=== PATIENT | male | born 1980 | race Caucasian/White ===

== ENCOUNTER → 2019-03-18 | Outpatient (CLI) | payer MEDICARE, MEDICAID ==
--- NOTE | 2019-03-24 13:47 | PATH ---
[facility] [address] [place] [address] PATHOLOGY RPT PROCEDURE Name: ADAMARISABDIRASHID Room: [facility] Alyssa.#: [id number] Admission: 03/18/19 Date of : 80 Discharge: Report #: [id number] Path Case #: [id number] [facility] Accession Number: [id number] . 01 Material submitted: . foot - RIGHT FOOT WOUND TISSUE. Modifiers: right . 01 Clinical history: . None provided . 02 Diagnosis: Right foot wound, biopsy: - Benign skin with ulceration, scattered fungal elements within epithelium and features typical of stasis dermatitis. (See comment) . (JORI:mml; 03/20/2019) QLM 03/21/2019 1008 Local . 02 Comment: Properly-controlled PAS-fungus stain demonstrates scattered fungal organisms within the squamous epithelium. Speciation is best determined with cultures. (JORI:mml; 03/20/2019) . 02 Electronically signed: . Jean Ding MD, Pathologist NPI- [id number] . 01 Gross description: . The specimen is received in formalin, labeled "Abdirashid Bailon, right foot biopsy". Received are three segments of pale golden, grossly unremarkable to slight granular skin ranging in size from 1.3 x 0.4 x 0.2 to 1.5 x 0.4 x 0.2 cm in greatest dimensions. The surgical margins are inked. The specimen is submitted entirely in cassette A1. (CAA; 03/19/2019) QAC/QAC 03/19/2019 1159 Local . 02 Pathologist provided ICD-10: I87.2, L98.499 . 02 CPT . 573772, 407555 Specimen Comment: Report sent to / DR ATWOOD Performed at: [address] [id number] MD Kenny Aguayo MD Phone: [phone] [address] [address] PATHOLOGY RPT PROCEDURE Name: ABDIRASHID BAILON Room: [facility]#: [id number] Admission: 03/18/19 Date of : 80 Discharge: Report #: [id number] Path Case #: [id number] Performed at: [address] [id number] MD Jean Ding MD Phone: [phone]
== END ==
LOC: M.WC 13:00
DX: L89.613 Pressure ulcer of right heel, stage 3 (principal); Q05.7 Lumbar spina bifida without hydrocephalus; G82.21 Paraplegia, complete; I10 Essential (primary) hypertension; F32.9 Major depressive disorder, single episode, unspecified

== ENCOUNTER → 2019-03-25 | Outpatient (CLI) | payer MEDICARE, MEDICAID | LOC: M.WC 05:09 | DX: L89.613 Pressure ulcer of right heel, stage 3 (principal); Q05.7 Lumbar spina bifida without hydrocephalus; G82.20 Paraplegia, unspecified; I10 Essential (primary) hypertension; F32.9 Major depressive disorder, single episode, unspecified ==

== ENCOUNTER → 2019-04-01 | Outpatient (CLI) | payer MEDICARE, MEDICAID ==
--- NOTE | 2019-04-04 14:06 | PATH ---
[facility] [address] [place] [address] PATHOLOGY RPT PROCEDURE Name: ABDIRASHID BAILON [facility] [id number] Admission: 04/01/19 Date of : 80 Discharge: Report #: [id number] Path Case #: [id number] [facility] Accession Number: [id number] . 01 Material submitted: . heel - BONE TISSUE FROM RIGHT HEEL WOUND. Modifiers: right . 01 Clinical history: . Right heel nonhealing wound . 02 Diagnosis: Right heel wound (bone): - Benign and viable cancellous bone without osteomyelitis identified. (JORI:erica; 04/04/2019) MBR 04/04/2019 1211 Local . 02 Electronically signed: . Jean Ding MD, Pathologist NPI- [id number] . 01 Gross description: . The specimen is received in formalin, labeled "Abdirashid Bailon, right heel wound (bone)" and consists of a fragment of golden bone measuring 0.3 x 0.3 x 0.3 cm which is entirely submitted in A1 following decalcification. (SDY; 04/02/2019) SYU/SYU 04/02/2019 1033 Local . 02 Pathologist provided ICD-10: S91.301A . 02 CPT . 341959, 966465 Specimen Comment: A courtesy copy of this report has been sent to Specimen Comment: [phone], . Specimen Comment: Report sent to / DR ATWOOD Performed at: [address], [place], [place] [id number] MD Kenny Aguayo MD Phone: [phone] Performed at: 02 [facility] [address], [place], [place] [id number] MD Jean iDng MD Phone: [phone]
== END ==
LOC: M.WC 05:39
DX: L89.613 Pressure ulcer of right heel, stage 3 (principal); Q05.7 Lumbar spina bifida without hydrocephalus; G82.20 Paraplegia, unspecified; I10 Essential (primary) hypertension; F32.9 Major depressive disorder, single episode, unspecified

== ENCOUNTER → 2019-04-04 | Outpatient (CLI) | payer MEDICARE, MEDICAID | LOC: M.MRI 17:01 | DX: L89.619 Pressure ulcer of right heel, unspecified stage (principal); S82.391D Other fracture of lower end of right tibia, subsequent encounter for closed fracture with routine healing; X58.XXXD Exposure to other specified factors, subsequent encounter ==

== ENCOUNTER → 2019-04-08 | Outpatient (CLI) | payer MEDICARE, MEDICAID | LOC: M.WC 05:20 | DX: L89.613 Pressure ulcer of right heel, stage 3 (principal); I87.2 Venous insufficiency (chronic) (peripheral); G82.20 Paraplegia, unspecified; I10 Essential (primary) hypertension; Q05.7 Lumbar spina bifida without hydrocephalus; F32.9 Major depressive disorder, single episode, unspecified ==

== ENCOUNTER → 2019-04-15 | Outpatient (CLI) | payer MEDICARE, MEDICAID | LOC: M.WC 05:14 | DX: L89.613 Pressure ulcer of right heel, stage 3 (principal); Q05.7 Lumbar spina bifida without hydrocephalus; G82.20 Paraplegia, unspecified; I87.2 Venous insufficiency (chronic) (peripheral); I10 Essential (primary) hypertension; F32.9 Major depressive disorder, single episode, unspecified ==

== ENCOUNTER → 2019-04-18 | Outpatient (CLI) | payer MEDICARE, MEDICAID | LOC: M.WC 01:47 | DX: L89.613 Pressure ulcer of right heel, stage 3 (principal); Q05.7 Lumbar spina bifida without hydrocephalus; G82.20 Paraplegia, unspecified; I87.2 Venous insufficiency (chronic) (peripheral); I10 Essential (primary) hypertension; F32.9 Major depressive disorder, single episode, unspecified ==

== ENCOUNTER → 2019-04-22 | Outpatient (CLI) | payer MEDICARE, MEDICAID | LOC: M.WC 05:02 | DX: L89.613 Pressure ulcer of right heel, stage 3 (principal); Q05.7 Lumbar spina bifida without hydrocephalus; I10 Essential (primary) hypertension; I87.2 Venous insufficiency (chronic) (peripheral); G82.20 Paraplegia, unspecified; F32.9 Major depressive disorder, single episode, unspecified ==

== ENCOUNTER → 2019-05-13 | Outpatient (CLI) | payer MEDICARE, MEDICAID | LOC: M.WC 05:13 | DX: L89.613 Pressure ulcer of right heel, stage 3 (principal); Q05.7 Lumbar spina bifida without hydrocephalus; G82.20 Paraplegia, unspecified; I87.2 Venous insufficiency (chronic) (peripheral); I10 Essential (primary) hypertension; F32.9 Major depressive disorder, single episode, unspecified ==

== ENCOUNTER → 2019-05-20 | Outpatient (CLI) | payer MEDICARE, MEDICAID | LOC: M.WC 04:43 | DX: L89.613 Pressure ulcer of right heel, stage 3 (principal); Q05.7 Lumbar spina bifida without hydrocephalus; I87.2 Venous insufficiency (chronic) (peripheral); I10 Essential (primary) hypertension; G82.20 Paraplegia, unspecified; F32.9 Major depressive disorder, single episode, unspecified ==

== ENCOUNTER → 2019-05-27 | Outpatient (CLI) | payer MEDICARE, MEDICAID | LOC: M.WC 04:59 | DX: L89.613 Pressure ulcer of right heel, stage 3 (principal); Q05.7 Lumbar spina bifida without hydrocephalus; G82.20 Paraplegia, unspecified; I87.2 Venous insufficiency (chronic) (peripheral); I10 Essential (primary) hypertension; F32.9 Major depressive disorder, single episode, unspecified ==

== ENCOUNTER → 2019-06-03 | Outpatient (CLI) | payer MEDICARE, MEDICAID | LOC: M.WC 04:53 | DX: L89.613 Pressure ulcer of right heel, stage 3 (principal); Q05.7 Lumbar spina bifida without hydrocephalus; G82.20 Paraplegia, unspecified; I87.2 Venous insufficiency (chronic) (peripheral); I10 Essential (primary) hypertension; F32.9 Major depressive disorder, single episode, unspecified ==

== ENCOUNTER → 2019-06-25 | Outpatient (CLI) | payer MEDICARE, MEDICAID | LOC: M.WC 06-24 13:00 | DX: L89.613 Pressure ulcer of right heel, stage 3 (principal); G82.20 Paraplegia, unspecified; L84 Corns and callosities; Q05.7 Lumbar spina bifida without hydrocephalus; I87.2 Venous insufficiency (chronic) (peripheral); I10 Essential (primary) hypertension; F32.9 Major depressive disorder, single episode, unspecified ==

== ENCOUNTER → 2019-07-01 | Outpatient (CLI) | payer MEDICARE, MEDICAID | LOC: M.WC 02:24 | DX: L89.613 Pressure ulcer of right heel, stage 3 (principal); G82.20 Paraplegia, unspecified; I87.2 Venous insufficiency (chronic) (peripheral); I10 Essential (primary) hypertension; Q05.7 Lumbar spina bifida without hydrocephalus ==

== ENCOUNTER → 2019-07-07 | Outpatient (CLI) | payer MEDICARE, MEDICAID ==
[~2019-07-07] MED LIST: LISINOPRIL-HCT1 EACH PO
== END ==
LOC: M.WC 05:49
DX: L89.613 Pressure ulcer of right heel, stage 3 (principal); Q05.7 Lumbar spina bifida without hydrocephalus; I87.2 Venous insufficiency (chronic) (peripheral); G82.20 Paraplegia, unspecified; I10 Essential (primary) hypertension

== ENCOUNTER → 2019-07-14 | Day surgery (SDC) | payer MEDICARE, MEDICAID ==
[2019-07-14 11:56] LABS: HEMATOCRIT 41.9 % (42.0-52.0); HEMOGLOBIN 14.8 gm/dL (14.0-18.0); MCH 29.5 pg (26.0-34.0); MCHC 35.3 g/dL (28.0-37.0); MCV 83.5 fL (80.0-100.0); MPV 9.2 fl. (7.2-11.1); RBC 5.02 mil/uL (4.50-6.00); WBC 10.2 thou/uL (4.0-11.0)
[2019-07-14 12:06] LABS: CALCIUM 10.1 mg/dL (8.5-10.1); CREATININE 1.6 mg/dL (0.6-1.3); POTASSIUM 3.9 mmol/L (3.5-5.1)
[2019-07-14 12:18] LABS: ALBUMIN 3.6 g/dL (3.4-5.0); TOTAL BILIRUBIN 0.3 mg/dL (<0.1-1.0); TOTAL PROTEIN 7.6 g/dL (6.4-8.2)
--- NOTE | 2019-07-21 08:10 | H ---
[place] [address] HISTORY AND PHYSICAL Name: WENDIE BAILON Room: [facility].#: [id number] Admission: 07/14/19 Attend Phys: Wendy Ferrer MD Discharge: Date of : 80 Report #: [id number] THIS REPORT FOR: //name// CC: Wendy Hatch Plan of treatment on 07/14/2019. DIAGNOSIS: Pressure ulcer of the right heel, stage 3. HISTORY OF PRESENT ILLNESS: The patient is a 38-year-old male with chronic deformity of the right lower extremity and has a development of a pressure ulcer on his right heel, which is a stage 3. He was being seen at the [facility] and after different trials of debridements and conservative therapy, it has been recommended that he proceed on to a more advanced skin tissue substitute, so he is being prepared for debridement and placement of an advanced skin tissue substitute. PAST MEDICAL HISTORY: His other significant history, spina bifida, hypertension and chronic venous insufficiency. PAST SURGICAL HISTORY: He has had some surgical operations for spina bifida. The details are not available. CURRENT MEDICATIONS: Include lisinopril/hydrochlorothiazide 03/29.. ALLERGIES: HE REPORTS ALLERGIES TO LATEX AND SULFA. SOCIAL HISTORY: He does not smoke or drink. He is wheelchair bound. PHYSICAL EXAMINATION: GENERAL: Well-developed, well-nourished male. HEAD, EARS, EYES, NOSE AND THROAT: Unremarkable. NECK: Supple. LUNGS: Clear. CARDIAC: Regular rate and rhythm. ABDOMEN: Benign. EXTREMITIES: On his lower extremity, which are atrophic, of note he has got some scarring on the medial aspect of his right heel from a foot operation that he has had many different clubfoot and it was noticed there is a healed wound on the right, which is pressure related. It measures 2.4 cm x 1.3 x 1.9 cm in depth. There is no significant surrounding erythema. There is some small pitting edema from his chronic venous insufficiency. IMPRESSION: Pressure ulcer of the right heel, stage 3; venous insufficiency. PLAN: The plan is for surgical debridement and placement of Stravix, [place] [address] HISTORY AND PHYSICAL Name: WENDIE BAILON Room: [facility]#: [id number] Admission: 07/14/19 Attend Phys: Wendy Ferrer MD Discharge: Date of : 80 Report #: [id number] advanced tissue substitute and CECILY bandaging. I have outlined the risks and benefits of the surgery and placement of the CECILY bandage. I answered his questions. He understands and wishes to proceed. <ELECTRONICALLY SIGNED> By: Wendy Ferrer MD 07/21/19 0810 1103 [id number] Ferrer MD /nt
--- NOTE | 2019-07-21 08:10 | OP ---
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 OPERATIVE PROCEDURE: Excisional debridement down to muscle followed by placement of 3 x 6 Stravix and a 5.9 x 5.9 CECILY bandage. ANESTHESIA: None. OPERATIVE FINDINGS: A deep seated chronic diabetic foot ulcer was in need of advanced tissue substitute to aid in healing. DESCRIPTION OF PROCEDURE: The patient was placed on the operating table and the right lower extremity was prepped and draped in a sterile fashion. A timeout was taken. IV Ancef was administered. I began by using pickups and a #15 scalpel blade and sharply excising the surrounding callus at the outer edge of the wound and some slough and devitalized tissues in the deep wound until healthy bleeding was accomplished. Bleeding was controlled with cautery. Then, a taut out 3 x 6 Stravix was cut in piece, had fenestration hole was placed into it and fed into this cavity and it filled the cavity completely. I then took an Adaptic and cut 2 pieces and laid it over the outside of the wound and Steri-Stripped it with Steri-Strips and Mastisol and then a 5.9 x 5.9 square CECILY was placed over the wound and placed under negative pressure with good seal ending the operative procedure. Estimated blood loss was 1 mL. Sponge and instrument counts correct. The patient was sent to recovery in stable condition. <ELECTRONICALLY SIGNED> By: Wendy Ferrer MD 07/21/19 0810 1337 [id number] Ferrer MD /nt
== END | disposition home or self-care (01) ==
LOC: M.SUR 06:53
PROVIDERS: Anesthesiology
DX: E11.621 Type 2 diabetes mellitus with foot ulcer (principal); L89.613 Pressure ulcer of right heel, stage 3; I10 Essential (primary) hypertension; I87.2 Venous insufficiency (chronic) (peripheral); Z79.899 Other long term (current) drug therapy; Z91.040 Latex allergy status; Z88.2 Allergy status to sulfonamides

== ENCOUNTER → 2019-07-21 | Outpatient (CLI) | payer MEDICARE, MEDICAID | LOC: M.WC 02:22 | DX: L89.613 Pressure ulcer of right heel, stage 3 (principal); Q05.7 Lumbar spina bifida without hydrocephalus; G82.20 Paraplegia, unspecified; I87.2 Venous insufficiency (chronic) (peripheral); I10 Essential (primary) hypertension ==

== ENCOUNTER → 2019-07-29 | Outpatient (CLI) | payer MEDICARE, MEDICAID | LOC: M.WC 03:20 | DX: L89.613 Pressure ulcer of right heel, stage 3 (principal); L84 Corns and callosities; Q05.7 Lumbar spina bifida without hydrocephalus; G82.20 Paraplegia, unspecified; I87.2 Venous insufficiency (chronic) (peripheral); I10 Essential (primary) hypertension; F32.9 Major depressive disorder, single episode, unspecified ==

== ENCOUNTER → 2019-08-04 | Outpatient (CLI) | payer MEDICARE, MEDICAID | LOC: M.WC 01:40 | DX: L89.613 Pressure ulcer of right heel, stage 3 (principal); Q05.7 Lumbar spina bifida without hydrocephalus; G82.20 Paraplegia, unspecified; I87.2 Venous insufficiency (chronic) (peripheral); I10 Essential (primary) hypertension ==

== ENCOUNTER → 2019-08-11 | Outpatient (CLI) | payer MEDICARE, MEDICAID | LOC: M.WC 03:40 | DX: L89.613 Pressure ulcer of right heel, stage 3 (principal); Q05.7 Lumbar spina bifida without hydrocephalus; G82.20 Paraplegia, unspecified; I87.2 Venous insufficiency (chronic) (peripheral); I10 Essential (primary) hypertension ==

== ENCOUNTER → 2019-08-18 | Outpatient (CLI) | payer MEDICARE, MEDICAID | LOC: M.WC 02:18 | DX: L89.613 Pressure ulcer of right heel, stage 3 (principal); L89.892 Pressure ulcer of other site, stage 2; L97.218 Non-pressure chronic ulcer of right calf with other specified severity; L97.312 Non-pressure chronic ulcer of right ankle with fat layer exposed; Q05.7 Lumbar spina bifida without hydrocephalus; I87.2 Venous insufficiency (chronic) (peripheral); I10 Essential (primary) hypertension ==

== ENCOUNTER → 2019-08-25 | Day surgery (SDC) | payer MEDICARE, MEDICAID ==
--- NOTE | 2019-08-25 08:12 | H ---
[place] [address] HISTORY AND PHYSICAL Name: WENDIE BAILON Room: [facility]..#: [id number] Admission: Attend Phys: Wendy Ferrer MD Discharge: Date of : 80 Report #: [id number] THIS REPORT FOR: //name// cc: Vishal Hatch MD, Usman MD ~ THIS REPORT FOR: //name// CC: Wendy Hatch DATE OF SERVICE: 08/25/2019 The patient to be treated on 08/25/2019. ADMITTING DIAGNOSIS: Pressure ulcer right heel and ulcer right lateral foot. HISTORY OF PRESENT ILLNESS: The patient is a 38-year-old male with a chronic deformity of the right lower extremity, who had developed a pressure ulcer on his right heel, which is stage 3. He underwent a successful debridement and application of a Stravix with negative pressure wound device, ECCILY, and had a positive result, but the wound has stalled and so he is being presented again for a second surgery and placement for this stage 3 ulcer. PAST MEDICAL HISTORY: Spina bifida, hypertension, and chronic venous insufficiency. PAST SURGICAL HISTORY: Multiple surgical operations for spina bifida and surgery on his right foot, which are not available. MEDICATIONS: Include lisinopril and hydrochlorothiazide. ALLERGIES: He reports allergies to LATEX and SULFA. SOCIAL HISTORY: He does not smoke or drink and he is wheelchair bound. PHYSICAL EXAMINATION: GENERAL: He is a well-developed, well-nourished male. HEAD, EARS, EYES, NOSE AND THROAT: Unremarkable. NECK: Supple. LUNGS: Clear. CARDIAC: Regular rate and rhythm without murmur. ABDOMEN: Soft. EXTREMITIES: On his lower extremity on his right foot, which is atrophic, he has got some scarring on the medial aspect of his right heel. He had multiple operations for clubbed foot. As noticed, there is a healed wound on the right, which measures 1.3 cm x 0.2 cm x 2.5 cm in depth that [place] [address] HISTORY AND PHYSICAL Name: WENDIE BAILON Room: [facility].R.#: [id number] Admission: Attend Phys: Wendy Ferrer MD Discharge: Date of : 80 Report #: [id number] that measures 1 cm x 1.5 cm x 0.2 cm. There is still some mild pitting edema from chronic venous insufficiency. No surrounding erythema. IMPRESSION AND PLAN: Pressure ulcer of the right heel, stage 3, venous insufficiency. I plan to do surgical debridement and placement of Stravix under local anesthesia and placed in a CECILY device for bandaging. I have outlined the procedure with its associated risks and benefits, answered his questions. He understands and wishes to proceed. <ELECTRONICALLY SIGNED> By: Wendy Ferrer MD 08/25/19 0812 1653 [id number] Ferrer MD /emely
--- NOTE | 2019-08-26 14:11 | OP ---
[address] [address] OPERATIVE REPORT Name: WENDIE BAILON Room: [facility].#: [id number] Admission: 08/25/19 Attend Phys: Wendy Ferrer MD Discharge: Date of : 80 Report #: [id number] THIS REPORT FOR: //name// cc: Vishal Hatch MD, Usman MD ~ THIS REPORT FOR: //name// CC: Wendy Hatch DATE OF SERVICE: 08/25/2019 PREOPERATIVE DIAGNOSIS: Chronic pressure ulcer of the right heel. POSTOPERATIVE DIAGNOSIS: Chronic pressure ulcer of the right heel. OPERATIVE PROCEDURE: Excisional debridement down to tendon of a 2.5 x 1.5 x 2.5 cm pressure ulcer, placement of a 2 cm x 3 cm Stravix advanced tissue substitute, and placement of negative pressure wound therapy device CECILY. ANESTHESIA: 1% lidocaine with epinephrine DESCRIPTION OF PROCEDURE: The patient was placed in a supine position, and the right heel and foot were carefully prepped and draped in a sterile fashion. A timeout was taken. IV antibiotics administered. I began by infiltrating into the tissues of the wound bed with 2 mL of the lidocaine and epinephrine mixture. A pickup and then #15 blade was used to sharply debride the callus subcutaneous tissue down to muscle and tendon of the heel back to healthy bleeding tissue. Pressure was applied to control bleeding. Then, a 2 x 3 Stravix which was already moistened in saline was packed into the wound. All sites of the wound were covered. I then covered the Stravix and wound with an Adaptic and sealed it with Steri-Strips and then placed the 5.9 x 5.9 CECILY bandage with negative pressure with good seal ending the operative procedure. Estimated blood loss was 1 mL. Sponge and instrument counts correct. The patient was taken to recovery room in stable condition. <ELECTRONICALLY SIGNED> By: Wendy Ferrer MD 08/26/19 1411 1328 1342Wendy Ferrer MD /nt
== END | disposition home or self-care (01) ==
LOC: M.SUR 06:22
DX: L89.619 Pressure ulcer of right heel, unspecified stage (principal); Z98.890 Other specified postprocedural states; Z88.2 Allergy status to sulfonamides; Z91.040 Latex allergy status

== ENCOUNTER → 2019-09-01 | Outpatient (CLI) | payer MEDICARE, MEDICAID | LOC: M.WC 01:59 | DX: L89.613 Pressure ulcer of right heel, stage 3 (principal); L89.892 Pressure ulcer of other site, stage 2; L97.312 Non-pressure chronic ulcer of right ankle with fat layer exposed; L84 Corns and callosities; Q05.7 Lumbar spina bifida without hydrocephalus; I87.2 Venous insufficiency (chronic) (peripheral); I10 Essential (primary) hypertension; G82.20 Paraplegia, unspecified ==

== ENCOUNTER → 2019-09-08 | Outpatient (CLI) | payer MEDICARE, MEDICAID | LOC: M.WC 03:05 | DX: L89.613 Pressure ulcer of right heel, stage 3 (principal); L97.312 Non-pressure chronic ulcer of right ankle with fat layer exposed; L84 Corns and callosities; G82.20 Paraplegia, unspecified; Q05.7 Lumbar spina bifida without hydrocephalus; I87.2 Venous insufficiency (chronic) (peripheral); I10 Essential (primary) hypertension ==

== ENCOUNTER → 2019-09-15 | Outpatient (CLI) | payer MEDICARE, MEDICAID | LOC: M.WC 04:25 | DX: L89.613 Pressure ulcer of right heel, stage 3 (principal); L97.316 Non-pressure chronic ulcer of right ankle with bone involvement without evidence of necrosis; L84 Corns and callosities; I87.2 Venous insufficiency (chronic) (peripheral); I10 Essential (primary) hypertension; Q05.7 Lumbar spina bifida without hydrocephalus; G82.20 Paraplegia, unspecified ==

== ENCOUNTER → 2019-09-22 | Outpatient (CLI) | payer MEDICARE, MEDICAID | LOC: M.WC 02:54 | DX: L89.613 Pressure ulcer of right heel, stage 3 (principal); L97.312 Non-pressure chronic ulcer of right ankle with fat layer exposed; L84 Corns and callosities; Q05.7 Lumbar spina bifida without hydrocephalus; G82.20 Paraplegia, unspecified; I87.2 Venous insufficiency (chronic) (peripheral); I10 Essential (primary) hypertension ==

== ENCOUNTER → 2019-09-29 | Outpatient (CLI) | payer MEDICARE, MEDICAID | LOC: M.WC 00:37 | DX: L89.613 Pressure ulcer of right heel, stage 3 (principal); L97.316 Non-pressure chronic ulcer of right ankle with bone involvement without evidence of necrosis; L84 Corns and callosities; G82.20 Paraplegia, unspecified; I87.2 Venous insufficiency (chronic) (peripheral); I10 Essential (primary) hypertension; Q05.7 Lumbar spina bifida without hydrocephalus ==

== ENCOUNTER → 2019-10-06 | Outpatient (CLI) | payer MEDICARE, MEDICAID | LOC: M.WC 07:40 | DX: L89.613 Pressure ulcer of right heel, stage 3 (principal); L97.312 Non-pressure chronic ulcer of right ankle with fat layer exposed; Q05.7 Lumbar spina bifida without hydrocephalus; G82.20 Paraplegia, unspecified; I87.2 Venous insufficiency (chronic) (peripheral); I10 Essential (primary) hypertension ==

== ENCOUNTER → 2019-10-13 | Outpatient (CLI) | payer MEDICARE, MEDICAID | LOC: M.WC 01:45 | DX: L89.613 Pressure ulcer of right heel, stage 3 (principal); L97.312 Non-pressure chronic ulcer of right ankle with fat layer exposed; L84 Corns and callosities; I87.2 Venous insufficiency (chronic) (peripheral); I10 Essential (primary) hypertension; G82.20 Paraplegia, unspecified; Q05.7 Lumbar spina bifida without hydrocephalus ==

== ENCOUNTER → 2019-10-20 | Outpatient (CLI) | payer MEDICARE, MEDICAID | LOC: M.WC 01:36 | DX: L89.613 Pressure ulcer of right heel, stage 3 (principal); L97.312 Non-pressure chronic ulcer of right ankle with fat layer exposed; I87.2 Venous insufficiency (chronic) (peripheral); Q05.7 Lumbar spina bifida without hydrocephalus; L84 Corns and callosities; G82.20 Paraplegia, unspecified; I10 Essential (primary) hypertension ==

== ENCOUNTER → 2019-10-27 | Outpatient (CLI) | payer MEDICARE, MEDICAID | LOC: M.WC 01:38 | DX: L89.613 Pressure ulcer of right heel, stage 3 (principal); L97.312 Non-pressure chronic ulcer of right ankle with fat layer exposed; I87.2 Venous insufficiency (chronic) (peripheral); Q05.7 Lumbar spina bifida without hydrocephalus; L84 Corns and callosities; I10 Essential (primary) hypertension; G82.20 Paraplegia, unspecified ==

== ENCOUNTER → 2019-11-03 | Outpatient (CLI) | payer MEDICARE, MEDICAID | LOC: M.WC 04:36 | DX: E11.621 Type 2 diabetes mellitus with foot ulcer (principal); L97.411 Non-pressure chronic ulcer of right heel and midfoot limited to breakdown of skin; E11.622 Type 2 diabetes mellitus with other skin ulcer; L97.312 Non-pressure chronic ulcer of right ankle with fat layer exposed; I87.2 Venous insufficiency (chronic) (peripheral); Q05.7 Lumbar spina bifida without hydrocephalus; L84 Corns and callosities; G82.20 Paraplegia, unspecified; I10 Essential (primary) hypertension ==

== ENCOUNTER → 2019-11-11 | Outpatient (CLI) | payer MEDICARE, MEDICAID | LOC: M.WC 04:16 | DX: T86.821 Skin graft (allograft) (autograft) failure (principal); E11.621 Type 2 diabetes mellitus with foot ulcer; L89.613 Pressure ulcer of right heel, stage 3; L97.412 Non-pressure chronic ulcer of right heel and midfoot with fat layer exposed; E11.622 Type 2 diabetes mellitus with other skin ulcer; L97.312 Non-pressure chronic ulcer of right ankle with fat layer exposed; I87.2 Venous insufficiency (chronic) (peripheral); Q05.7 Lumbar spina bifida without hydrocephalus; L84 Corns and callosities; I10 Essential (primary) hypertension; F32.9 Major depressive disorder, single episode, unspecified; Z79.84 Long term (current) use of oral hypoglycemic drugs; Y83.2 Surgical operation with anastomosis, bypass or graft as the cause of abnormal reaction of the patient, or of later complication, without mention of misadventure at the time of the procedure ==

== ENCOUNTER → 2019-11-18 | Outpatient (CLI) | payer MEDICARE, MEDICAID ==
--- NOTE | 2019-11-18 12:27 | 2DMMODE ---
[place] [address] 2 D/M-MODE ECHOCARDIOGRAM Name: WENDIE BAILON Room: [facility]#: [id number] Admission: 11/18/19 Attend Phys: Brianda Mendoza, Discharge: Date of : 80 Date of Service: 11/18/19 1225 Report #: [id number] THIS REPORT FOR: cc: Theresa Navarrete MD, Lin W. MD Liston, Michael J. MD [facility] ~ APPROVED REPORT Study performed: 11/18/2019 10:03:32 EXAM: Comprehensive 2D, Doppler, and color-flow Echocardiogram Patient Location: Out-Patient BSA: 2.00 HR: 94 bpm BP: 122/90 mmHg Other Information Study Quality: Good Indications Hypertension/HDD 2D Dimensions IVSd: 12.47 (7-11mm) LVOT Diam: 21.52 (18-24mm) LVDd: 31.78 mm PWd: 8.89 (7-11mm) Ascending Ao: 27.48 (22-36mm) LVDs: 22.80 (25-40mm) Aortic Root: 24.84 mm Volumes Left Atrial Volume (Systole) LA ESV Index: 9.10 mL/m2 Aortic Valve AoV Peak Adan.: 1.22 m/s AO Peak Gr.: 5.98 mmHg LVOT Max P.40 mmHg AO Mean Gr.: 3.69 mmHg LVOT Mean P.30 mmHg LVOT Max V: 1.27 m/s AO V2 VTI: 19.51 cm LVOT Mean V: 0.84 m/s LILY (VTI): 3.99 cm2 LVOT V1 VTI: 21.41 cm Mitral Valve E/A Ratio: 0.68 [place] [address] 2 D/M-MODE ECHOCARDIOGRAM Name: WENDIE BAILON Room: [facility]#: [id number] Admission: 11/18/19 Attend Phys: Brianda Mendoza, Discharge: Date of : 80 Date of Service: 11/18/19 1225 Report #: [id number] MV Decel. Time: 165.76 ms MV E Max Adan.: 0.55 m/s MV PHT: 48.07 ms MVA (PHT): 4.58 cm2 TDI E/Lateral E': 6.88 E/Medial E': 4.23 Medial E' Adan.: 0.13 m/s Lateral E' Adan.: 0.08 m/s Pulmonary Valve PV Peak Adan.: 0.79 m/s PV Peak Gr.: 2.51 mmHg Left Ventricle The left ventricle is normal size. There is normal LV segmental wall motion. There is normal left ventricular wall thickness. Left ventricular systolic function is normal. LVEF is 60-65%. Grade I - abnormal relaxation pattern. Right Ventricle The right ventricle is normal size. The right ventricular systolic function is normal. Atria The left atrium size is normal. The right atrium size is normal. Aortic Valve The aortic valve is normal in structure. No aortic regurgitation is present. There is no aortic valvular stenosis. Mitral Valve The mitral valve is normal in structure. There is no mitral valve regurgitation noted. No evidence of mitral valve stenosis. Tricuspid Valve The tricuspid valve is normal in structure. There is no tricuspid valve regurgitation noted. Pulmonic Valve The pulmonary valve is normal in structure. There is no pulmonic valvular regurgitation. Great Vessels The aortic root is normal in size. IVC is normal in size and collapses >50% [place] [address] 2 D/M-MODE ECHOCARDIOGRAM Name: ADAMARISBRYANTWENDIE Hitesh Room: [facility]#: [id number] Admission: 11/18/19 Attend Phys: Brianda Mendoza, Discharge: Date of : 80 Date of Service: 11/18/19 1225 Report #: [id number] Pericardium There is no pericardial effusion. <Conclusion> The left ventricle is normal size. There is normal left ventricular wall thickness. Left ventricular systolic function is normal. LVEF is 60-65%. Grade I - abnormal relaxation pattern. IVC is normal in size and collapses >50% with inspiration. <ELECTRONICALLY SIGNED> By: Kennedy Gutierrez MD, FACC 11/18/19 1225 24 24 Kennedy Gutierrez MD, FACC /INF
== END ==
LOC: M.CRD 10:00
DX: I10 Essential (primary) hypertension (principal)

== ENCOUNTER → 2021-02-08 | Outpatient (CLI) | payer MEDICARE, MEDICAID ==
[2021-02-08 14:03] LABS: ALBUMIN 3.8 g/dL (3.4-5.0); ALKALINE PHOSPHATASE 115 U/L (46-116); ANION GAP 11 mmol/L (7-16); BUN 18 mg/dL (7-18); CHLORIDE 98 mmol/L (98-107); CHOLESTEROL 217 mg/dL (<200); CO2 25 mmol/L (21-32); CREATININE 1.4 mg/dL (0.6-1.3); GLUCOSE 384 mg/dL (70-99); HDL CHOLESTEROL 31 mg/dL (>40); MAGNESIUM 1.6 mg/dL (1.8-2.4); POTASSIUM 4.2 mmol/L (3.5-5.1); SGOT 15 U/L (15-37); SGPT 50 U/L (30-65); SODIUM 134 mmol/L (136-145); TOTAL BILIRUBIN 0.4 mg/dL (<0.1-1.0); TRIGLYCERIDE 671 mg/dL (<150); VLDL 134 mg/dL (<40)
[2021-02-08 14:10] LABS: LDL CHOLESTEROL ND mg/dL (<100)
[2021-02-08 14:11] LABS: SERUM ASSESSMENT Slight Lipemia
== END ==
LOC: M.LAB 13:36
PROVIDERS: ATTEND Nurse Practitioner
DX: I10 Essential (primary) hypertension (principal); E78.2 Mixed hyperlipidemia